=== PATIENT | male | born 2000 | race Caucasian/White ===

== ENCOUNTER 2022-01-12 10:52 | Emergency (ER) | payer SELFPAY ==
--- NOTE | ~2022-01-12 | XR_ITS ---
EXAMINATION: XR foot LT min 3V DATE: 01/12/2022 11:54 INDICATION: Left foot pain and swelling. TECHNIQUE: 4 views of left foot were obtained. COMPARISON: None. FINDINGS: There is moderate hallux valgus. No fracture. There is mild osteoarthritis of first metatar sophalangeal joint and some of the interphalangeal joints. IMPRESSION: 1. Moderate hallux valgus. 2. Mild polyarticular osteoarthritis. Reviewed, dictated and finalized at location A.
[2022-01-12 11:05] VITALS: BP 145/74; PULSE 109; RESP 18; TEMP 37.3; O2SAT 100
--- NOTE | 2022-01-12 11:50 | ED.LOWEXIN ---
HPI - Extremity Injury (Lower) General Chief Complaint: Extremity Injury, Lower Stated Complaint: left ankle pain Time Seen by Provider: 01/12/22 11:14 History of Present Illness HPI Narrative: 21-year-old man presented to the emergency room for evaluation of left ankle pain. Patient states yesterday he was skateboarding when he lost his balance fell off the board and twisted his left ankle. Patient states pain is worse with ambulation. Related Data Allergies Allergy/AdvReac Type Severity Reaction Status Date / Time No Known Allergies Allergy Verified 01/12/22 11:07 Review of Systems Review of Systems: CONSTITUTIONAL: Denies fever, chills, or sweats. EYES: Denies visual changes, redness, or discharge. ENT: Denies rhinorrhea, congestion, sore throat, or otalgia. CARDIOVASCULAR: Denies chest pain, palpitations, or edema. RESPIRATORY: Denies cough or dyspnea. GASTROINTESTINAL: Denies abdominal pain, nausea, vomiting, or diarrhea. GENITOURINARY: Denies dysuria or hematuria. SKIN: Denies rash or itching. Reports left ankle pain denies back pain, joint pain, or myalgia. NEUROLOGIC: Denies headache, numbness, dizziness, or weakness. PSYCHIATRIC: Denies anxiety or depression. Exam Narrative: GENERAL: Well-appearing, well-nourished, no physical limitations, and in no acute distress. HEAD: Normocephalic, atraumatic. EYES: Conjunctivae normal, PERRLA and EOMI. CHEST: Clear to auscultation. No respiratory distress. No wheezes rales or rhonchi. No tenderness. HEART: Regular rate and rhythm. No murmur heard. Normal peripheral pulses. EXTREMITIES: Left ankle: +TTP over the anterior talofibular ligament, no tenderness to the lateral or medial malleolus. No obvious bony abnormality, no soft tissue swelling or ecchymosis noted. No joint laxity. Neurovascular is intact distally SKIN: Warm, dry, no rash. No noted wounds NEURO: No focal deficits. Alert and oriented x3. MAEW. CN's II-XI intact bilaterally, antalgic gait PSYCH: Cooperative. Normal mood and affect. Course Vital Signs Vital signs: Vital Signs Temperature 37.3 C 01/12/22 11:05 Pulse Rate 109 H 01/12/22 11:05 Respiratory Rate 18 01/12/22 11:05 Blood Pressure 145/74 H 01/12/22 11:05 Pulse Oximetry 100 01/12/22 11:05 Oxygen Delivery Room Air 01/12/22 11:05 Temperature 37.3 C 01/12/22 11:05 Pulse Rate 109 H 01/12/22 11:05 Respiratory Rate 18 01/12/22 11:05 Blood Pressure 145/74 H 01/12/22 11:05 Pulse Oximetry 100 01/12/22 11:05 Oxygen Delivery Room Air 01/12/22 11:05 MDM - Extremity Injury (Lower) Imaging Data Radiologist's impression: Impressions Foot X-Ray 01/12/22 11:54 IMPRESSION: 1. Moderate hallux valgus. 2. Mild polyarticular osteoarthritis. Discharge Plan Discharge Clinical Impression: Ankle sprain and strain Patient Disposition: Home, Self-Care Condition: Stable Instructions: Antibiotic Form Additional Instructions: Recommend wearing Mo bandage or similar ankle compression sleeve for comfort. May follow-up with orthopedics in the next 1 to 2 weeks and if you are pain is not improving. Prescriptions: New meloxicam 15 mg tablet 15 mg PO DAILY Qty: 14 0RF Follow-up/Referrals: Tien Vogel MD [Physician] - PHYSICIAN NOT ON STAFF,NONSTAFF [Non-Staff] - Time of Disposition: 12:17
== END 2022-01-12 12:38 | disposition home or self-care (01) ==
PROVIDERS: Emergency Provider Nurse Practitioner Family; PCP Internal Medicine
DX: S93.402A Sprain of unspecified ligament of left ankle, initial encounter (principal); S96.912A Strain of unspecified muscle and tendon at ankle and foot level, left foot, initial encounter; M20.12 Hallux valgus (acquired), left foot; M19.072 Primary osteoarthritis, left ankle and foot; V00.131A Fall from skateboard, initial encounter; Y93.51 Activity, roller skating (inline) and skateboarding
CPT/HCPCS: 73630; 99283

== ENCOUNTER 2024-12-30 15:37 | Emergency (ER) | payer OTHER, SELFPAY ==
--- NOTE | 2024-12-30 15:39 | ED.GENADULT ---
HPI - General Adult General Chief complaint: Recheck/Abnormal Lab/Rx Stated complaint: high blood pressure Time Seen by Provider: 12/30/24 15:46 Source: patient, RN notes reviewed and old records reviewed Mode of arrival: ambulatory Limitations: no limitations History of Present Illness HPI narrative: 24-year-old male presents to the [facility] with concerns of high blood pressure. States that he took it at in his blood pressure was 130's/80's Patient reports that for the last 2 weeks he has been having anxiety. Does use a vape pen with nicotine. Reports that he has cut back on caffeine, mountain Dews Patient also did smoke weed but found that it has been causing him anxiety. States in the morning it is worse. 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 Also states he has a history of a murmur which was told when he was younger that was nothing. Has concerns over it. Patient denies any symptoms sitting in exam room. Onset (ago): week(s) (2) Related Data Home Medications ?Medication ?Instructions ?Recorded ?Confirmed ?Last Taken ?Type No Home Medications 12/30/24 12/30/24 Unknown History Allergies Allergy/AdvReac Type Severity Reaction Status Date / Time No Known Allergies Allergy Verified 12/30/24 15:53 Review of Systems Review of Systems: All systems reviewed & are unremarkable except as noted in HPI and below Constitutional: Constitutional: Reports no additional constitutional complaints ENT: Reports system reviewed and no additional complaints, except as documented Cardiovascular: Cardiovascular: Reports as per HPI, Denies chest pain, Reports rapid heart rate, Denies pedal edema, Denies edema and Denies dyspnea Respiratory: Respiratory: Reports no additional respiratory complaints, Denies chest congestion, Denies cough and Denies dyspnea Musculoskeletal: Musculoskeletal: Reports no additional musculoskeletal complaints Integumentary/Breasts: Skin/Breast: Reports system reviewed and no additional complaints, except as docu Psychiatric: Psychiatric: Reports as per HPI PMFSH Comments At the time of my signature, I reviewed and agree with the nursing past medical, surgical, social, and family history. There is no relevant family history pertinent to the patient complaint. Exam Const: General: cooperative, healthy appearing, comfortable, no acute distress, well developed, alert and well nourished Nutritional Appearance: well nourished Orientation/consciousness: patient oriented x3 Limitations: no limitations HENMT: Head: normal to inspection Ears: hearing grossly normal bilaterally, external ears normal, TM's normal bilaterally, EAC's normal, mastoids normal and no periauricular adenopathy Mouth: Yes Normal oral and palatal mucosa present, Yes lip normal, Yes tongue normal and Yes moist mucous membranes Throat: posterior oropharynx normal, uvula midline and no uvular edema Eyes: General: appearance normal, both eyes and all related structures Alignment and Position: alignment normal Neck: Neck: normal visual inspection, full ROM, no lymphadenopathy and no meningeal signs Chest: Chest palpation & inspection: normal inspection of the chest Resp: Effort & Inspection: normal respiratory effort and able to speak in complete sentences Auscultation: clear to auscultation bilaterally, no crackles, no rales, no rhonchi and no wheezes Cardio: Rate: regular rate Heart sounds: Murmur heart sound present Skin: General skin exam: normal color and no rashes or lesions noted Neuro: General: patient oriented x3, gait normal, moves all extremities and no meningeal signs Cognition (Neuro): normal cognition Speech: normal speech Gait exam (Neuro): Normal gait present Extrem: General: normal to inspection, full ROM, capillary refill normal and normal gait Psych: Appearance: grossly normal and well kempt Mental Status: mental status grossly normal Speech and movement: Normal speech and movement present and Clear speech present Affect: normal affect Attitude: cooperative Course Course Level of Care: Express Care Visit Vital Signs Vital signs: Vital Signs Temperature 99.1 F 12/30/24 15:48 Pulse Rate 69 12/30/24 15:48 Respiratory Rate 12/30/24 15:48 Blood Pressure 156/90 H 12/30/24 15:48 Pulse Oximetry 100 12/30/24 15:48 Oxygen Delivery Room Air 12/30/24 15:48 Temperature 99.1 F 12/30/24 15:48 Pulse Rate 69 12/30/24 15:48 Respiratory Rate 12/30/24 15:48 Blood Pressure 156/90 H 12/30/24 15:48 Pulse Oximetry 100 12/30/24 15:48 Oxygen Delivery Room Air 12/30/24 15:48 Reviewed Medical Decision Making MDM Narrative Medical decision making narrative: Patient sitting comfortably in exam room. Nontoxic, vitals stable. Patient in no acute distress Patient presents with multiple concerns over 2 weeks, currently with no symptoms. Discussed with patient that he needs to follow-up with primary care provider for further evaluation. Patient appropriate for outpatient treatment and follow-up Discharge instructions reviewed with patient, as well as provided in writing per nursing staff. The instructions also include specific and strict return/GO TO THE ER as well as f/u information. All questions have been answered, and the patient deny any further questions with discharge and discharge plan. Some parts of this dictation were generated by voice recognition software and may contain typographical and/or grammatical inaccuracies. Differential Diagnosis Differential Diagnosis: Dehydration, heat injury, thyroid disorder, electrolyte disorder, anxiety Medical Records Medical records reviewed: Yes I reviewed the external patient's medical records. Vital Signs Vital Signs: Vital Signs Temperature 99.1 F 12/30/24 15:48 Pulse Rate 69 12/30/24 15:48 Respiratory Rate 20 12/30/24 15:48 Blood Pressure 156/90 H 12/30/24 15:48 Pulse Oximetry 100 12/30/24 15:48 Oxygen Delivery Room Air 12/30/24 15:48 Temperature 99.1 F 12/30/24 15:48 Pulse Rate 69 12/30/24 15:48 Respiratory Rate 20 12/30/24 15:48 Blood Pressure 156/90 H 12/30/24 15:48 Pulse Oximetry 100 12/30/24 15:48 Oxygen Delivery Room Air 12/30/24 15:48 Reviewed Lab Data Lab results reviewed: Yes I reviewed the patient's lab results. Labs: Reviewed Critical Care Time Critical Care Time Critical Care Time: No Discharge Plan Discharge Clinical Impression: Heart murmur, Blood pressure check Patient Disposition: Home Condition: Stable Instructions: How to Take a Blood Pressure Reading (ED), Muscle Cramp (ED) Additional Instructions: Most important part of your care is following up with your primary care provider for further evaluation If you develop symptoms such as chest pain, shortness of breath, heart beating too fast please proceed to the nearest emergency room Patient Language: Thai Prescriptions: No Action No Home Medications Follow-up/Referrals: Mary Jane,Yomi Cespedes MD [Primary Care Provider] - 1 Week (express care follow up ) Stand Alone Forms: Work/School Release IP Time of Disposition: 16:02
[2024-12-30 15:48] VITALS: BP 156/90; PULSE 69; RESP 20; TEMP 37.3; O2SAT 100
== END 2024-12-30 16:09 | disposition home or self-care (01) ==
PROVIDERS: Emergency Provider Nurse Practitioner; PCP Internal Medicine
DX: R01.1 Cardiac murmur, unspecified (principal); Z01.31 Encounter for examination of blood pressure with abnormal findings
CPT/HCPCS: 99211; G0463